=== PATIENT | female | born 1975 | race Caucasian/White ===

== ENCOUNTER → 2018-08-08 | Outpatient (CLI) | payer BC ==
[~2018-08-08] MED LIST: DIPH0.5D12 IM; PNEI IM; VARE1TAB4 PO
--- NOTE | 2018-08-09 08:34 | RADIOLOGY IMAGING REPORT ---
FACILITY: [facility] PATIENT NAME: GREGG HENSLEY : [id number] MR: [id number] V: [id number] EXAM DATE: ORDERING PHYSICIAN: MARIIA MCWILLIAMS TECHNOLOGIST: Penelope Gaspar PROCEDURE:BILATERAL DIGITAL SCREENING MAMMOGRAM WITH CAD ASSISTED INTERPRETATION & 3D TOMOSYNTHESIS COMPARISON:None. This is the patient's baseline mammogram. INDICATIONS:SCREENING FINDINGS: Dense heterogeneous fibroglandular tissue is seen throughout the breasts which can obscure small masses. There is no evidence of malignant appearing mass or calcification in either breast. DIAGNOSTIC CATEGORY 1--NEGATIVE. RECOMMENDATIONS: ROUTINE MAMMOGRAM AND CLINICAL EVALUATION. IMPRESSION: BIRADS 1: Negative. No significant abnormality is seen. Dictated by: Breanna Meyers M.D. on 08/08/2018 at 16:42 Transcribed by: NEYMAR on 08/09/2018 at 7:09 Approved by: Breanna Meyers M.D. on 08/09/2018 at 8:33 [facility]
== END ==
LOC: MAMO 00:31
PROVIDERS: ATTEND Nurse Practitioner Family
DX: Z12.31 Encounter for screening mammogram for malignant neoplasm of breast (principal)
CPT/HCPCS: 77063; 77067